=== PATIENT | female | born 1940 | race Hispanic/Latino ===

== ENCOUNTER 2021-05-19 21:23 | Inpatient (IN) | payer MEDICARE ==
[~2021-05-19] VITALS: Ht 152.4 cm; Wt 74.3 kg
[2021-05-19] MEDS ORDERED: FUROSEMIDE 40MG VIAL ONE (22:06)
[2021-05-19] MEDS ORDERED: FUROSEMIDE 20MG VIAL ONE (22:06)
[2021-05-19] MEDS ORDERED: ONDANSETRON 4MG INJ ONE (22:26)
[2021-05-19] MEDS ORDERED: AMIODARONE 150MG VIAL ONE ×2 (22:27→22:44)
[2021-05-19 22:37] LABS: ABG OXYGEN SATURATION 24.2 % (95.0-99.0); BASE EXCESS,VENOUS BLOOD GAS -10.5 (-2.0-3.0); HCO3,VENOUS BLOOD GAS 16.5 (21.0-28.0); PCO2,VENOUS BLOOD GAS 40 (32-45); PH,VENOUS BLOOD GAS 7.229 (7.350-7.450)
[2021-05-19] MEDS ORDERED: DEXTROSE 5%-WATER 500 ML IV ONE (22:38)
[2021-05-19] MEDS ORDERED: ACETAMINOPHEN 650 MG SUPPOSITORY RC ONE ×2 (22:39→23:00)
[2021-05-19 22:44] LABS: BASOPHILS % (AUTO) 0.2 % (0.0-5.0); EOSINOPHILS % (AUTO) 0.2 % (0.0-8.0); MEAN CORPUSCULAR HEMOGLOBIN 29.1 pg (27.0-33.0); MEAN CORPUSCULAR HGB CONC 30.2 g/dL (32.0-36.0); MEAN CORPUSCULAR VOLUME 96.4 fL (79-99); MONOCYTES % (AUTO) 7.2 % (3.0-13.0); NEUTROPHILS % (AUTO) 78.6 % (40.0-77.0); NUCLEATED RED BLOOD CELLS 0.4 % (0.0-0.19); PLATELET COUNT (AUTO) 278 K/uL (130-400); RED BLOOD CELL COUNT(AUTO) 4.67 MIL/uL (4.00-5.50); RED CELL DISTRIBUTION WIDTH 14.8 % (11.0-15.5); WHITE BLOOD COUNT (AUTO) 12.9 K/uL (4.8-10.8)
[2021-05-19 22:50] LABS: APPEARANCE,URINE Turbid (CLEAR); BILIRUBIN,URINE Small (NEGATIVE); COLOR,URINE Dark Yellow (YELLOW); GLUCOSE, URINE (UA) Negative (NEGATIVE); KETONES,URINE Trace mg/dL (NEGATIVE); LEUKOCYTE ESTERASE ,URINE Large (NEGATIVE); NITRATE,URINE Negative (NEGATIVE); OCCULT BLOOD,URINE Small (NEGATIVE); PROTEIN,URINE POS 2+ mg/dL (NEGATIVE)
[2021-05-19 23:00] LABS: CREATININE 2.2 mg/dL (0.5-1.5); INR 2.02 (0.85-1.15); POTASSIUM 5.3 mmol/L (3.5-5.1); PROTHROMBIN TIME 20.7 SEC (9.6-11.6)
[2021-05-19] MEDS ORDERED: AMIODARONE 900MG VIAL 150 MG in DEXTROSE 5%-WATER 100 ML IV SCH (23:00)
[2021-05-19] MEDS ORDERED: ZOSYN 3.375GM +NS 50ML IV ONE (23:00)
[2021-05-19] MEDS ORDERED: AMIODARONE 900MG VIAL 360 MG in DEXTROSE 5%-WATER 200 ML IV SCH (23:00)
[2021-05-19 23:01] LABS: PARTIAL THROMBOPLASTIN TIME 30.9 SEC (26.3-35.5)
[2021-05-19 23:03] LABS: B-TYPE NATRIURETIC PEPTIDE 2310 pg/mL (0-100)
[2021-05-19 23:05] LABS: BACTERIA,URINE Moderate /HPF (None Seen); WBC,URINE TNTC /HPF (0-1)
[2021-05-19] MEDS ORDERED: PHENYLEPHRINE HCL 10 MG/ML 1ML VIAL IV ONE (23:09)
[2021-05-19 23:21] LABS: ALBUMIN 2.8 g/dL (3.5-5.0); BILIRUBIN,TOTAL 1.3 mg/dL (0.2-1.0); MAGNESIUM 2.6 mg/dL (1.80-2.40); TOTAL PROTEIN, SERUM 7.3 g/dL (6.0-8.3)
[2021-05-20 01:09] LABS: ABG BASE EXCESS -8.4 mmol/L (-2.0-3.0); ABG HCO3 15.2 mmol/L (21.0-28.0); ABG OXYGEN SATURATION 95.3 % (95.0-99.0); ABG PCO2 27 mmHg (32-45)
[2021-05-20] MEDS ORDERED: ONDANSETRON 4MG INJ IV PRN (01:30)
[2021-05-20] MEDS ORDERED: CEFTRIAXONE 1G VIAL IV SCH (01:30)
[2021-05-20] MEDS ORDERED: MORPHINE 2 MG SYG ONE (01:49)
[2021-05-20] MEDS ORDERED: ZOSYN 3.375GM+NS 50ML 50 ML ONE (01:56)
[2021-05-20] MEDS ORDERED: 0.9%NACL 50ML 50 ML IV ONE ×3 (01:56→20:31)
[2021-05-20] MEDS ORDERED: FUROSEMIDE 20MG VIAL IV ONE (02:00)
[2021-05-20] MEDS ORDERED: FUROSEMIDE 40MG VIAL IV ONE (02:00)
[2021-05-20] MEDS ORDERED: MORPHINE 2 MG SYG IVP ONE (02:00)
[2021-05-20] MEDS ORDERED: METOPROLOL TARTRATE 1 MG/ML 5ML VIAL IV STA (02:36)
[2021-05-20] MEDS ORDERED: ACETAMINOPHEN 650 MG SUPPOSITORY RC ONE (02:53)
[2021-05-20] MEDS ORDERED: ACETAMINOPHEN 325 MG SUPPOSITORY RC STA (02:59)
[2021-05-20] MEDS ORDERED: SODIUM BICARB 8.4% 50ML SYRINGE IVP STA (02:59)
[2021-05-20] MEDS ORDERED: KETOROLAC 15MG/ML VIAL (15MG/ML) IV STA (02:59)
[2021-05-20] MEDS ORDERED: SODIUM BICARB 50MEQ 50ML VIAL 100 ML ONE (03:37)
[2021-05-20] MEDS ORDERED: VANCOMYCIN 1G VIAL IVPB SCH (04:00)
[2021-05-20] MEDS ORDERED: 0.9% NACL 250ML IV SCH (04:00)
[2021-05-20] MEDS ORDERED: ALBUTEROL 0.083% 2.5 MG/3 ML INH IH PRN (04:30)
[2021-05-20] MEDS ORDERED: IPRATROPIUM 0.5 MG/2.5 ML INH IH PRN (04:30)
[2021-05-20] MEDS ORDERED: GUAIFENESIN-DM 200/20 MG 10 ML PO PRN (04:30)
[2021-05-20] MEDS ORDERED: NITROGLYCERIN 0.4 MG SL TAB SL PRN (04:30)
[2021-05-20] MEDS ORDERED: LACTULOSE 20 GM/30 ML UDCUP PO PRN (04:30)
[2021-05-20] MEDS ORDERED: ACETAMINOPHEN 325 MG TAB PO PRN (04:30)
[2021-05-20] MEDS ORDERED: KETOROLAC 15MG/ML VIAL (15MG/ML) ONE (04:41)
[2021-05-20 04:44] LABS: ABG BASE EXCESS -8.1 mmol/L (-2.0-3.0); ABG HCO3 14.4 mmol/L (21.0-28.0); ABG PCO2 23 mmHg (32-45)
[2021-05-20] MEDS: ZOSYN 3.375GM+NS 50ML 50 ML IV SCH ×2 (05:00→20:35)
[2021-05-20] MEDS: PHARMACY COMMUNICATION MISC SCH ×2 (05:57→08:00)
[2021-05-20] MEDS ORDERED: VANCOMYCIN PROTOCOL PER PHARMACY IV SCH (06:30)
[2021-05-20 07:47] LABS: BASOPHILS % (AUTO) 0.5 % (0.0-5.0); EOSINOPHILS % (AUTO) 2.5 % (0.0-8.0); HEMATOCRIT 42.6 % (36-48); LYMPHOCYTES % (AUTO) 11.5 % (21.0-51.0); MEAN CORPUSCULAR HEMOGLOBIN 30.2 pg (27.0-33.0); MEAN CORPUSCULAR HGB CONC 30.5 g/dL (32.0-36.0); MEAN CORPUSCULAR VOLUME 99.1 fL (79-99); MONOCYTES % (AUTO) 7.5 % (3.0-13.0); NEUTROPHILS % (AUTO) 76.9 % (40.0-77.0); NUCLEATED RED BLOOD CELLS 1.1 % (0.0-0.19); PLATELET COUNT (AUTO) 207 K/uL (130-400); RED CELL DISTRIBUTION WIDTH 15.3 % (11.0-15.5); WHITE BLOOD COUNT (AUTO) 14.8 K/uL (4.8-10.8)
[2021-05-20 08:11] LABS: HEMOGLOBIN A1C 6.2 % (4.0-6.0)
[2021-05-20 08:15] LABS: BILIRUBIN,TOTAL 2.1 mg/dL (0.2-1.0); THYROID STIMULATING HORMONE 0.01 uIU/mL (0.36-3.74)
[2021-05-20] MEDS ORDERED: LACTATED RINGERS 1000ML 500 ML IV ONE (08:30)
[2021-05-20] MEDS ORDERED: 0.9% NACL 500ML IV.SOLN 500 ML IV ONE (08:33)
[2021-05-20 08:43] LABS: ALBUMIN 2.8 g/dL (3.5-5.0); CREATININE 2.6 mg/dL (0.5-1.5); TOTAL PROTEIN, SERUM 6.9 g/dL (6.0-8.3)
[2021-05-20] MEDS: VANCOMYCIN 1G/250ML KIT 250 ML IV SCH (08:53)
[2021-05-20] MEDS: PANTOPRAZOLE 40 MG/VIAL IVP SCH ×2 (08:53→20:34)
[2021-05-20] MEDS: ENOXAPARIN SODIUM 30 MG/0.3 ML SQ SCH (08:54)
[2021-05-20] MEDS ORDERED: 0.9% NACL 250ML 250 ML ONE (08:59)
[2021-05-20] MEDS ORDERED: FUROSEMIDE 40MG VIAL IVP SCH (09:00)
[2021-05-20] MEDS: DOXYCYCLINE 100MG+NS 250ML IV SCH ×2 (09:09→20:34)
[2021-05-20] MEDS ORDERED: METOPROLOL TARTRATE 1 MG/ML 5ML VIAL IV ONE (09:38)
[2021-05-20 10:05] LABS: POTASSIUM 4.5 mmol/L (3.5-5.1)
[2021-05-20] MEDS ORDERED: NOREPINEPHRIN 4MG/NS 250ML 250 ML IV SCH (12:30)
[2021-05-20 14:01] LABS: CHLORIDE,URINE RANDOM 48 mmol/L (110-250); CREATININE,URINE RANDOM 133 mg/dL (30-135); POTASSIUM,URINE RANDOM 105 mmol/L (25-125); SODIUM,URINE RANDOM 18 mmol/l (40-220)
[2021-05-20 14:16] LABS: ABG BASE EXCESS -9.1 mmol/L (-2.0-3.0); ABG HCO3 13.3 mmol/L (21.0-28.0); ABG OXYGEN SATURATION 98.3 % (95.0-99.0); ABG PCO2 22 mmHg (32-45)
[2021-05-20] MEDS: AMIODARONE 900MG VIAL 540 MG in DEXTROSE 5%-WATER 300 ML IV SCH (16:07)
[2021-05-20] MEDS ORDERED: 0.9%NACL 1000ML 1,000 ML IV ONE (18:35)
[2021-05-20 20:26] LABS: HEPATITIS A IGM ANTIBODY SEE SEPARATE REPORT (Negative); HEPATITIS B CORE IGM ANTIBODY SSR (Negative); HEPATITIS B SURFACE ANTIGEN SSR (Negative); HEPATITIS C ANTIBODY SSR (NEGATIVE)
[2021-05-20] MEDS ORDERED: 0.9%NACL 100ML 100 ML ONE (20:31)
[2021-05-21] MEDS ORDERED: AMIODARONE 200 MG TABLET PO ONE (00:25)
[2021-05-21] MEDS: ZOSYN 3.375GM+NS 50ML 50 ML IV SCH ×3 (05:13→21:00)
[2021-05-21 05:17] LABS: BASOPHILS % (AUTO) 0.3 % (0.0-5.0); EOSINOPHILS % (AUTO) 0.1 % (0.0-8.0); LYMPHOCYTES % (AUTO) 4.2 % (21.0-51.0); MEAN CORPUSCULAR HEMOGLOBIN 28.9 pg (27.0-33.0); MEAN CORPUSCULAR HGB CONC 30.6 g/dL (32.0-36.0); MEAN CORPUSCULAR VOLUME 94.4 fL (79-99); MONOCYTES % (AUTO) 3.3 % (3.0-13.0); NEUTROPHILS % (AUTO) 90.6 % (40.0-77.0); NUCLEATED RED BLOOD CELLS 1.2 % (0.0-0.19); PLATELET COUNT (AUTO) 168 K/uL (130-400); WHITE BLOOD COUNT (AUTO) 15.5 K/uL (4.8-10.8)
[2021-05-21 05:28] LABS: INR 2.2 (0.85-1.15); PROTHROMBIN TIME 22.3 SEC (9.6-11.6)
[2021-05-21 05:39] LABS: ALBUMIN 2.2 g/dL (3.5-5.0); BILIRUBIN,TOTAL 2.5 mg/dL (0.2-1.0); CREATININE 3.3 mg/dL (0.5-1.5); MAGNESIUM 2.2 mg/dL (1.80-2.40); POTASSIUM 5.1 mmol/L (3.5-5.1); TOTAL PROTEIN, SERUM 5.7 g/dL (6.0-8.3)
[2021-05-21] MEDS ORDERED: 0.9% NACL 250ML 250 ML ONE (07:42)
[2021-05-21] MEDS: PANTOPRAZOLE 40 MG/VIAL IVP SCH ×2 (08:15→21:00)
[2021-05-21] MEDS: AMIODARONE 200 MG TABLET PO SCH ×2 (08:15→21:00)
[2021-05-21] MEDS: DOXYCYCLINE 100MG+NS 250ML IV SCH ×2 (08:15→21:00)
[2021-05-21] MEDS: ENOXAPARIN SODIUM 30 MG/0.3 ML SQ SCH (08:15)
[2021-05-21] MEDS: AMIODARONE 900MG VIAL 540 MG in DEXTROSE 5%-WATER 300 ML IV SCH ×4 (11:44→22:34)
[2021-05-21] MEDS ORDERED: 0.9%NACL 50ML 50 ML IV ONE (12:47)
[2021-05-21] MEDS: HEPARIN 5,000 UNIT VIAL SQ SCH (21:00)
[2021-05-21 22:50] VITALS: BP 130/59
[2021-05-22] VITALS (32 sets, daily range): BP systolic 79–192; BP diastolic 32–100
[2021-05-22 04:12] LABS: BASOPHILS % (AUTO) 0.3 % (0.0-5.0); EOSINOPHILS % (AUTO) 0.1 % (0.0-8.0); HEMATOCRIT 36.1 % (36-48); LYMPHOCYTES % (AUTO) 4.1 % (21.0-51.0); MEAN CORPUSCULAR HEMOGLOBIN 29.2 pg (27.0-33.0); MEAN CORPUSCULAR HGB CONC 30.7 g/dL (32.0-36.0); MONOCYTES % (AUTO) 5.2 % (3.0-13.0); NEUTROPHILS % (AUTO) 88.6 % (40.0-77.0); NUCLEATED RED BLOOD CELLS 1.5 % (0.0-0.19); PLATELET COUNT (AUTO) 159 K/uL (130-400); WHITE BLOOD COUNT (AUTO) 13.8 K/uL (4.8-10.8)
[2021-05-22 04:20] LABS: INR 1.69 (0.85-1.15); PROTHROMBIN TIME 17.6 SEC (9.6-11.6)
[2021-05-22 04:53] LABS: ALBUMIN 2.1 g/dL (3.5-5.0); BILIRUBIN,TOTAL 3.1 mg/dL (0.2-1.0); MAGNESIUM 2.3 mg/dL (1.80-2.40); POTASSIUM 4.6 mmol/L (3.5-5.1); TOTAL PROTEIN, SERUM 5.7 g/dL (6.0-8.3)
[2021-05-22] MEDS: ZOSYN 3.375GM+NS 50ML 50 ML IV SCH ×3 (05:23→21:11)
[2021-05-22] MEDS: HEPARIN 5,000 UNIT VIAL SQ SCH ×3 (05:59→21:12)
[2021-05-22] MEDS: AMIODARONE 200 MG TABLET PO SCH ×2 (06:45→09:00)
[2021-05-22] MEDS ORDERED: AMIODARONE 150MG VIAL 150 MG in DEXTROSE 5%-WATER 100 ML IV SCH (10:00)
[2021-05-22] MEDS: PANTOPRAZOLE 40 MG/VIAL IVP SCH ×2 (10:27→21:11)
[2021-05-22] MEDS: VANCOMYCIN 1G/250ML KIT 250 ML IV SCH (10:28)
[2021-05-22] MEDS: DOXYCYCLINE 100MG+NS 250ML IV SCH ×2 (10:28→21:11)
[2021-05-22] MEDS ORDERED: AMIODARONE 900MG VIAL 360 MG in DEXTROSE 5%-WATER 200 ML IV SCH (16:00)
[2021-05-22] MEDS ORDERED: METOPROLOL TARTRATE 1 MG/ML 5ML VIAL IV ONE ×3 (16:30→16:56)
[2021-05-22] MEDS ORDERED: AMIODARONE 150MG VIAL ONE (16:31)
[2021-05-22] MEDS ORDERED: ALBUMIN (HUMAN) 25% 100 ML IV ONE (19:28)
[2021-05-22] MEDS ORDERED: 0.9% NACL 500ML IV.SOLN 500 ML IV ONE (19:28)
[2021-05-22] MEDS ORDERED: ALBUMIN (HUMAN) 25% 100 ML IV PRN (19:30)
[2021-05-22] MEDS ORDERED: PHENYLEPHRINE HCL 100 MG in 0.9% NACL 250ML 250 ML IV SCH (19:30)
[2021-05-22] MEDS ORDERED: 0.9% NACL 500ML IV.SOLN 500 ML IV SCH (19:30)
[2021-05-22] MEDS ORDERED: NOREPINEPHRINE 16MG/NS 250ML PREMIX IV SCH (20:00)
[2021-05-22] MEDS ORDERED: PHARMACY COMMUNICATION MISC SCH (20:00)
[2021-05-22] MEDS ORDERED: NOREPINEPHRINE 16MG/NS 250ML 250 ML IV SCH (20:30)
[2021-05-22] MEDS ORDERED: DEXTROSE 50%-WATER 50 ML DISP.SYRIN IV ONE (20:35)
[2021-05-22] MEDS ORDERED: DEXTROSE 50%-WATER 50 ML DISP.SYRIN IV PRN (21:00)
[2021-05-22] MEDS ORDERED: GLUCAGON 1MG KIT 1 MG ML IM PRN (21:00)
[2021-05-22] MEDS ORDERED: ALTEPLASE 2MG VIAL 2 MG/VIAL VIAL IVCATH SCH (21:30)
[2021-05-22] MEDS: AMIODARONE 900MG VIAL 540 MG in DEXTROSE 5%-WATER 300 ML IV SCH (21:48)
[2021-05-22] MEDS ORDERED: NACL 23.4% (4MEQ/ML) 30ML VIAL 154 MEQ in DEXTROSE 10%-WATER 961.5 ML IV SCH (22:00)
[2021-05-22 22:11] LABS: ABG BASE EXCESS -31.5 mmol/L (-2.0-3.0); ABG HCO3 4.3 mmol/L (21.0-28.0); ABG OXYGEN SATURATION 98.3 % (95.0-99.0); ABG PCO2 36 mmHg (32-45)
[2021-05-22] MEDS ORDERED: SODIUM BICARB 50MEQ 50ML VIAL 200 ML ONE ×2 (22:15→23:28)
[2021-05-22] MEDS ORDERED: SODIUM BICARB 50MEQ 50ML VIAL IV STA (22:17)
[2021-05-22] MEDS ORDERED: SODIUM BICARB 8.4% 50ML SYRING 150 MEQ in DEXTROSE 5%-WATER 1,000 ML IVP SCH (22:30)
[2021-05-22] MEDS ORDERED: PHENYLEPHRINE HCL 10 MG/ML 1ML VIAL IV ONE ×2 (22:47→22:49)
[2021-05-22] MEDS ORDERED: 0.9%NACL 1000ML 1,000 ML IV ONE (23:20)
[2021-05-22] MEDS ORDERED: NS PMX IV ONE (23:26)
[2021-05-22] MEDS ORDERED: NOREPINEPHRIN 8 MG/250 ML IV ONE (23:26)
[2021-05-23] VITALS (42 sets, daily range): BP systolic 77–151; BP diastolic 39–97
[2021-05-23] MEDS ORDERED: SODIUM BICARB 50MEQ 50ML VIAL 150 ML ONE (00:07)
[2021-05-23] MEDS ORDERED: NOREPINEPHRINE BITARTRATE 1 MG/1 ML ML IV ONE ×2 (01:14→01:19)
[2021-05-23] MEDS ORDERED: 0.9% NACL 250ML 250 ML ONE ×2 (01:16→20:42)
[2021-05-23] MEDS ORDERED: DIGOXIN 250 MCG/ML 2ML AMP IV ONE (01:30)
[2021-05-23] MEDS ORDERED: AMIODARONE 150MG VIAL ONE ×2 (02:04→02:06)
[2021-05-23] MEDS ORDERED: DEXTROSE 5%-WATER 500 ML IV ONE (02:16)
[2021-05-23] MEDS: AMIODARONE 900MG VIAL 540 MG in DEXTROSE 5%-WATER 300 ML IV SCH (02:30)
[2021-05-23] MEDS ORDERED: NOREPINEPHRINE BITARTRATE 32 MG in 0.9% NACL 250ML 250 ML IV SCH (03:00)
[2021-05-23 03:41] LABS: BASOPHILS % (AUTO) 0.7 % (0.0-5.0); EOSINOPHILS % (AUTO) 0.7 % (0.0-8.0); HEMATOCRIT 30.4 % (36-48); LYMPHOCYTES % (AUTO) 5.5 % (21.0-51.0); MEAN CORPUSCULAR HEMOGLOBIN 29.4 pg (27.0-33.0); MEAN CORPUSCULAR HGB CONC 28.9 g/dL (32.0-36.0); MEAN CORPUSCULAR VOLUME 101.7 fL (79-99); MONOCYTES % (AUTO) 6.8 % (3.0-13.0); NEUTROPHILS % (AUTO) 80.3 % (40.0-77.0); NUCLEATED RED BLOOD CELLS 15.1 % (0.0-0.19); PLATELET COUNT (AUTO) 114 K/uL (130-400); RED BLOOD CELL COUNT(AUTO) 2.99 MIL/uL (4.00-5.50); RED CELL DISTRIBUTION WIDTH 15.8 % (11.0-15.5); WHITE BLOOD COUNT (AUTO) 22.5 K/uL (4.8-10.8)
[2021-05-23 04:07] LABS: LYMPHOCYTES % (MANUAL) 13 % (22-44); MONOCYTES % (MANUAL) 2 % (2-9); MYELOCYTES % 1 % (0-0); SEGMENTED NEUTROPHILS % 84 % (40-70)
[2021-05-23 04:08] LABS: MAN.DIFF COMMENT-IMPRESSION MANUAL DIFFERENTIAL; PLATELET MORPHOLOGY COMMENT SLIGHTLY DECREASED
[2021-05-23] MEDS: HEPARIN 5,000 UNIT VIAL SQ SCH ×3 (04:36→20:58)
[2021-05-23] MEDS: ZOSYN 3.375GM+NS 50ML 50 ML IV SCH ×3 (04:38→20:49)
[2021-05-23 06:28] LABS: ALBUMIN 2.3 g/dL (3.5-5.0); BILIRUBIN,TOTAL 4.8 mg/dL (0.2-1.0); CREATININE 4.6 mg/dL (0.5-1.5); POTASSIUM 5.3 mmol/L (3.5-5.1); TOTAL PROTEIN, SERUM 5.7 g/dL (6.0-8.3)
[2021-05-23] MEDS ORDERED: KAYEXALATE 15GM/60ML PO SCH (06:30)
[2021-05-23 08:19] LABS: ABG BASE EXCESS -15.4 mmol/L (-2.0-3.0); ABG HCO3 9.3 mmol/L (21.0-28.0); ABG OXYGEN SATURATION 92.6 % (95.0-99.0); ABG PCO2 21 mmHg (32-45)
[2021-05-23] MEDS: PANTOPRAZOLE 40 MG/VIAL IVP SCH ×2 (08:33→20:48)
[2021-05-23] MEDS: DOXYCYCLINE 100MG+NS 250ML IV SCH ×2 (08:33→20:49)
[2021-05-23] MEDS: AMIODARONE 200 MG TABLET PO SCH (08:33)
[2021-05-23] MEDS ORDERED: HYDROCORTISONE SOD SUCCINATE 100 MG/2 ML VIAL IM SCH (09:00)
[2021-05-23] MEDS ORDERED: VANCOMYCIN PROTOCOL PER PHARMACY IV SCH (10:00)
[2021-05-23] MEDS: SODIUM BICARB 8.4% 50ML SYRING 150 MEQ in DEXTROSE 5%-WATER 1,000 ML IVP SCH ×2 (12:01→23:59)
[2021-05-23] MEDS: HYDROCORTISONE SOD SUCCINATE 100 MG/2 ML VIAL IM SCH ×2 (13:25→16:16)
[2021-05-23] MEDS: BALSAM PERU/CASTOR OIL 60 GM TUBE TP SCH ×2 (13:58→20:59)
[2021-05-23] MEDS: ACETAMINOPHEN 325 MG TAB PO PRN ×2 (21:02→22:43)
[2021-05-23] MEDS: HYDROCORTISONE SOD SUCCINATE 100 MG/2 ML VIAL IVP SCH (22:42)
[2021-05-24] VITALS (82 sets, daily range): BP systolic 82–150; BP diastolic 34–101
[2021-05-24 04:08] LABS: ABG BASE EXCESS -1.1 mmol/L (-2.0-3.0); ABG HCO3 21.7 mmol/L (21.0-28.0); ABG OXYGEN SATURATION 95.5 % (95.0-99.0); ABG PCO2 31 mmHg (32-45)
[2021-05-24 04:16] LABS: BASOPHILS % (AUTO) 0.4 % (0.0-5.0); HEMATOCRIT 26.8 % (36-48); LYMPHOCYTES % (AUTO) 2.5 % (21.0-51.0); MEAN CORPUSCULAR HEMOGLOBIN 29.7 pg (27.0-33.0); MEAN CORPUSCULAR HGB CONC 32.8 g/dL (32.0-36.0); MEAN CORPUSCULAR VOLUME 90.5 fL (79-99); MONOCYTES % (AUTO) 4.3 % (3.0-13.0); NEUTROPHILS % (AUTO) 87.2 % (40.0-77.0); NUCLEATED RED BLOOD CELLS 9.6 % (0.0-0.19); PLATELET COUNT (AUTO) 80 K/uL (130-400); RED BLOOD CELL COUNT(AUTO) 2.96 MIL/uL (4.00-5.50); RED CELL DISTRIBUTION WIDTH 15.7 % (11.0-15.5); WHITE BLOOD COUNT (AUTO) 22.4 K/uL (4.8-10.8)
[2021-05-24 05:00] LABS: ALBUMIN 2.2 g/dL (3.5-5.0); BILIRUBIN,TOTAL 7.8 mg/dL (0.2-1.0); CREATININE 4.9 mg/dL (0.5-1.5); POTASSIUM 3.7 mmol/L (3.5-5.1); TOTAL PROTEIN, SERUM 5.2 g/dL (6.0-8.3)
[2021-05-24] MEDS: ZOSYN 3.375GM+NS 50ML 50 ML IV SCH ×3 (05:06→20:50)
[2021-05-24] MEDS ORDERED: AMIODARONE 200 MG TABLET PO ONE (05:30)
[2021-05-24] MEDS: HEPARIN 5,000 UNIT VIAL SQ SCH (05:36)
[2021-05-24] MEDS: SODIUM BICARB 8.4% 50ML SYRING 150 MEQ in DEXTROSE 5%-WATER 1,000 ML IVP SCH ×2 (06:00→12:06)
[2021-05-24] MEDS: PANTOPRAZOLE 40 MG/VIAL IVP SCH ×2 (08:50→20:52)
[2021-05-24] MEDS: HYDROCORTISONE SOD SUCCINATE 100 MG/2 ML VIAL IVP SCH ×4 (08:51→20:51)
[2021-05-24] MEDS: AMIODARONE 200 MG TABLET PO SCH ×2 (08:51→20:51)
[2021-05-24] MEDS: DOXYCYCLINE 100MG+NS 250ML IV SCH ×2 (08:51→20:50)
[2021-05-24] MEDS: BALSAM PERU/CASTOR OIL 60 GM TUBE TP SCH ×2 (08:51→20:52)
[2021-05-24] MEDS: AMIODARONE 900MG VIAL 540 MG in DEXTROSE 5%-WATER 300 ML IV SCH ×2 (08:52→16:00)
[2021-05-24] MEDS ORDERED: VASOPRESSIN 40 UNITS in 0.9%NACL 50ML 40 ML IV SCH (09:30)
[2021-05-24] MEDS ORDERED: AMIODARONE 900MG VIAL 360 MG in DEXTROSE 5%-WATER 200 ML IV SCH (10:00)
[2021-05-24] MEDS ORDERED: AMIODARONE 900MG VIAL 150 MG in DEXTROSE 5%-WATER 100 ML IV SCH (10:00)
[2021-05-24] MEDS ORDERED: METOPROLOL TARTRATE 1 MG/ML 5ML VIAL IV ONE (10:40)
[2021-05-24] MEDS ORDERED: METOPROLOL TARTRATE 1 MG/ML 5ML VIAL IV SCH (11:00)
[2021-05-24] MEDS: METOPROLOL TARTRATE 25 MG TAB PO SCH ×2 (12:04→20:50)
[2021-05-24] MEDS ORDERED: 0.9% NACL 250ML 250 ML ONE (20:45)
[2021-05-25] VITALS (43 sets, daily range): BP systolic 87–137; BP diastolic 38–85
[2021-05-25] MEDS: SODIUM BICARB 8.4% 50ML SYRING 150 MEQ in DEXTROSE 5%-WATER 1,000 ML IVP SCH ×3 (00:35→22:45)
[2021-05-25 04:13] LABS: ABG BASE EXCESS -0.4 mmol/L (-2.0-3.0); ABG HCO3 24.6 mmol/L (21.0-28.0); ABG OXYGEN SATURATION 63.6 % (95.0-99.0); ABG PCO2 42 mmHg (32-45)
[2021-05-25] MEDS: METOPROLOL TARTRATE 25 MG TAB PO SCH ×3 (04:24→22:09)
[2021-05-25] MEDS: ZOSYN 3.375GM+NS 50ML 50 ML IV SCH ×3 (04:24→22:08)
[2021-05-25 04:35] LABS: HEMATOCRIT 25.7 % (36-48); MEAN CORPUSCULAR HEMOGLOBIN 29.6 pg (27.0-33.0); MEAN CORPUSCULAR HGB CONC 32.7 g/dL (32.0-36.0); MEAN CORPUSCULAR VOLUME 90.5 fL (79-99); NUCLEATED RED BLOOD CELLS 4.3 % (0.0-0.19); RED BLOOD CELL COUNT(AUTO) 2.84 MIL/uL (4.00-5.50); RED CELL DISTRIBUTION WIDTH 15.8 % (11.0-15.5); WHITE BLOOD COUNT (AUTO) 18.6 K/uL (4.8-10.8)
[2021-05-25 04:41] LABS: ABG BASE EXCESS -0.5 mmol/L (-2.0-3.0); ABG OXYGEN SATURATION 92.9 % (95.0-99.0); ABG PCO2 39 mmHg (32-45)
[2021-05-25 05:04] LABS: ALBUMIN 1.9 g/dL (3.5-5.0); BILIRUBIN,TOTAL 8.8 mg/dL (0.2-1.0); CREATININE 5.2 mg/dL (0.5-1.5); MAGNESIUM 1.9 mg/dL (1.80-2.40); PHOSPHORUS 6.8 mg/dL (2.5-4.9); POTASSIUM 3.2 mmol/L (3.5-5.1); TOTAL PROTEIN, SERUM 4.7 g/dL (6.0-8.3)
[2021-05-25] MEDS: PANTOPRAZOLE 40 MG/VIAL IVP SCH ×2 (08:23→22:03)
[2021-05-25] MEDS: DOXYCYCLINE 100MG+NS 250ML IV SCH ×2 (08:23→22:03)
[2021-05-25] MEDS: AMIODARONE 200 MG TABLET PO SCH ×2 (08:24→22:03)
[2021-05-25] MEDS: HYDROCORTISONE SOD SUCCINATE 100 MG/2 ML VIAL IVP SCH ×4 (08:24→22:17)
[2021-05-25] MEDS: BALSAM PERU/CASTOR OIL 60 GM TUBE TP SCH ×2 (08:25→22:03)
[2021-05-25] MEDS: AMIODARONE 900MG VIAL 540 MG in DEXTROSE 5%-WATER 300 ML IV SCH (10:37)
[2021-05-25] MEDS ORDERED: HYDROMORPHONE 1 MG INJ IVP PRN (12:00)
[2021-05-25] MEDS ORDERED: LORAZEPAM 2 MG/ML 1 ML VIAL IM PRN (12:00)
[2021-05-25 15:12] LABS: ROCKY MT SPOTTED FEVER IGG <1:64 (Neg:<1:64); ROCKY MT SPOTTED FEVER IGM <1:64 (Neg:<1:64); TYPHUS FEVER AB IGG <1:64 (Neg:<1:64); TYPHUS FEVER AB IGM <1:64 (Neg:<1:64)
[2021-05-25] MEDS ORDERED: SOLU-MEDROL 125MG VIAL ONE (22:07)
[2021-05-25] MEDS ORDERED: SODIUM BICARB 50MEQ 50ML VIAL 150 ML ONE (22:27)
[2021-05-25] MEDS ORDERED: DEXTROSE 5%-WATER 1,000 ML IV ONE (22:28)
[2021-05-26] VITALS (7 sets, daily range): BP systolic 92–119; BP diastolic 37–64
[2021-05-26] MEDS: METOPROLOL TARTRATE 25 MG TAB PO SCH ×2 (04:23→10:33)
[2021-05-26] MEDS: ZOSYN 3.375GM+NS 50ML 50 ML IV SCH (04:23)
[2021-05-26] MEDS: DOXYCYCLINE 100MG+NS 250ML IV SCH (08:18)
[2021-05-26] MEDS: PANTOPRAZOLE 40 MG/VIAL IVP SCH (08:18)
[2021-05-26] MEDS: HYDROCORTISONE SOD SUCCINATE 100 MG/2 ML VIAL IVP SCH (08:19)
[2021-05-26] MEDS: AMIODARONE 200 MG TABLET PO SCH (08:19)
[2021-05-26] MEDS: BALSAM PERU/CASTOR OIL 60 GM TUBE TP SCH (10:32)
[2021-05-26] MEDS ORDERED: MORPHINE 2 MG SYG IVP PRN (13:30)
[2021-05-30] MEDS ORDERED: VANCOMYCIN 1G/250ML KIT 250 ML IV SCH (09:00)
== END 2021-05-26 14:38 | DRG 871 ==
LOC: EDH 21:23 → OBSVTOIN 05-20 01:04 → INTOOBSV 05-20 01:04 → EDHIP 05-20 01:04 → 3DH 05-21 21:53 → 2DH 05-22 15:37 → 2CH 05-22 16:31
PROVIDERS: ADMIT Hospitalist; ATTEND Hospitalist
PROC: 5A09457 Assistance with Respiratory Ventilation, 24-96 Consecutive Hours, Continuous Positive Airway Pressure (ICD-10-PCS; principal; 2021-05-19)
PROC: 02H633Z Insertion of Infusion Device into Right Atrium, Percutaneous Approach (ICD-10-PCS; 2021-05-20)
PROC: 5A09457 Assistance with Respiratory Ventilation, 24-96 Consecutive Hours, Continuous Positive Airway Pressure (ICD-10-PCS; 2021-05-22)
DX: A41.9 Sepsis, unspecified organism (principal); J18.9 Pneumonia, unspecified organism; J96.01 Acute respiratory failure with hypoxia; R65.21 Severe sepsis with septic shock; G93.41 Metabolic encephalopathy; K72.00 Acute and subacute hepatic failure without coma; N17.0 Acute kidney failure with tubular necrosis; J81.0 Acute pulmonary edema; I50.43 Acute on chronic combined systolic (congestive) and diastolic (congestive) heart failure; I13.0 Hypertensive heart and chronic kidney disease with heart failure and stage 1 through stage 4 chronic kidney disease, or unspecified chronic kidney disease; D68.59 Other primary thrombophilia; E87.0 Hyperosmolality and hypernatremia; Z16.24 Resistance to multiple antibiotics; E87.1 Hypo-osmolality and hyponatremia; Z16.12 Extended spectrum beta lactamase (ESBL) resistance; N39.0 Urinary tract infection, site not specified; Z66 Do not resuscitate; I25.5 Ischemic cardiomyopathy; B95.7 Other staphylococcus as the cause of diseases classified elsewhere; B96.20 Unspecified Escherichia coli [E. coli] as the cause of diseases classified elsewhere; E11.22 Type 2 diabetes mellitus with diabetic chronic kidney disease; D69.6 Thrombocytopenia, unspecified; E78.5 Hyperlipidemia, unspecified; E87.5 Hyperkalemia; Z20.822 Contact with and (suspected) exposure to COVID-19; E66.9 Obesity, unspecified; L89.152 Pressure ulcer of sacral region, stage 2; F02.80 Dementia in other diseases classified elsewhere, unspecified severity, without behavioral disturbance, psychotic disturbance, mood disturbance, and anxiety; G30.9 Alzheimer's disease, unspecified; I08.3 Combined rheumatic disorders of mitral, aortic and tricuspid valves; I25.10 Atherosclerotic heart disease of native coronary artery without angina pectoris; I48.0 Paroxysmal atrial fibrillation; N18.2 Chronic kidney disease, stage 2 (mild); Y95 Nosocomial condition; R53.81 Other malaise; E87.8 Other disorders of electrolyte and fluid balance, not elsewhere classified; B95.5 Unspecified streptococcus as the cause of diseases classified elsewhere; I44.7 Left bundle-branch block, unspecified; Z68.32 Body mass index [BMI] 32.0-32.9, adult; Z51.5 Encounter for palliative care; Z74.01 Bed confinement status; Z79.01 Long term (current) use of anticoagulants; Z79.82 Long term (current) use of aspirin; Z79.899 Other long term (current) drug therapy; Z95.0 Presence of cardiac pacemaker; Z95.1 Presence of aortocoronary bypass graft; Z83.3 Family history of diabetes mellitus
CPT/HCPCS: 36415; 36600; 71045; 76705; 80051; 80053; 80074; 81001; 82010; 82435; 82550; 82570; 82803; 82947; 82948; 83036; 83605; 83690; 83735; 83880; 83935; 84100; 84132; 84145; 84295; 84439; 84443; 84481; 84484; 85018; 85025; 85027; 85610; 85730; 86757; 87040; 87071; 87077; 87088; 87186; 87205; 87449; 87635; 87804; 93005; 93306; 93356; 93925; 94660; 99291; C9113; C9803; G0378; J0282; J0696; J1160; J1644; J1650; J1720; J1885; J1940; J2370; J2405; J2543; J2930; J2997; J3370; J3490; J7030; J7040; J7050; J7060; J7070; J7120; J7131; P9046